=== PATIENT | male | born 1965 ===

== ENCOUNTER 2022-05-07 10:00 | Inpatient (IN) | payer OTHER ==
[2022-05-07] MEDS ORDERED: COZAAR50 MG PO (12:09)
[2022-05-07] MEDS ORDERED: ZYLOPRIM100 M1 PO (12:09)
[2022-05-07] MEDS ORDERED: TOPROL XL50 M1 PO (12:09)
[2022-05-13] MEDS ORDERED: TRAM1TAB98 PO (09:22)
== END 2022-05-13 13:27 | disposition home or self-care (01) | DRG 331 ==
LOC: SURH 05-09 09:00 → O/R 05-09 09:13 → SURH 05-09 09:13
PROVIDERS: ADMIT Surgery; ATTEND Surgery
PROC: 0DTP4ZZ Resection of Rectum, Percutaneous Endoscopic Approach (ICD-10-PCS; 2022-05-09)
PROC: 0DTQ4ZZ Resection of Anus, Percutaneous Endoscopic Approach (ICD-10-PCS; 2022-05-09)
PROC: 07BC4ZZ Excision of Pelvis Lymphatic, Percutaneous Endoscopic Approach (ICD-10-PCS; 2022-05-09)
PROC: 0D1M4Z4 Bypass Descending Colon to Cutaneous, Percutaneous Endoscopic Approach (ICD-10-PCS; 2022-05-09)
PROC: 0DTN4ZZ Resection of Sigmoid Colon, Percutaneous Endoscopic Approach (ICD-10-PCS; principal; 2022-05-09 09:00)
DX: C20 Malignant neoplasm of rectum (principal); R19.5 Other fecal abnormalities; R19.4 Change in bowel habit; R59.0 Localized enlarged lymph nodes; I12.9 Hypertensive chronic kidney disease with stage 1 through stage 4 chronic kidney disease, or unspecified chronic kidney disease; N18.2 Chronic kidney disease, stage 2 (mild); N40.0 Benign prostatic hyperplasia without lower urinary tract symptoms; Z20.822 Contact with and (suspected) exposure to COVID-19